=== PATIENT | male | born 1965 | race Caucasian/White ===

== ENCOUNTER 2024-11-02 11:17 | Emergency (ER) | payer MEDICAID ==
[~2024-11-02] VITALS: Ht 172.7 cm; Wt 82.0 kg
[2024-11-02 11:21] VITALS: O2SAT 98
[2024-11-02] MEDS: ACETAMINOPHEN 325MG TABLET PO ONE (12:10)
[2024-11-02] MEDS: KETOROLAC 30MG/ML VIAL IM ONE (12:10)
[2024-11-02 12:39] LABS: BASOPHILS % 0.5 % (0.0-2.0); EOSINOPHILS % 3.4 % (0.0-5.0); HEMATOCRIT. 41.9 % (42.0-52.0); LYMPHOCYTES % 16.1 % (20.0-50.0); MEAN CORPUSCULAR HEMOGLOBIN 29.2 pg (28.0-32.0); MEAN CORPUSCULAR HGB CONC 33.4 g/dL (31.0-37.0); MEAN CORPUSCULAR VOLUME 87.6 fL (80.0-94.0); MEAN PLATELET VOLUME 8.7 fl (7.4-10.4); MONOCYTES % 10.3 % (2.0-8.0); NEUTROPHILS % 69.7 % (40.0-76.0); PLATELET 227 x1000/uL (130-400); RED BLOOD CELL COUNT 4.78 mill/uL (4.7-6.1); RED CELL DISTRIBUTION WIDTH 13.2 % (11.6-14.6); WHITE BLOOD COUNT 10.9 x1000/uL (4.5-11.0)
[2024-11-02 12:41] LABS: PROTHROMBIN TIME 10.5 sec (9.6-11.0)
[2024-11-02 12:48] LABS: CARBON DIOXIDE 27 mEq/L (21-32); CHLORIDE 102 mEq/L (98-107); POTASSIUM 4.2 mEq/L (3.5-5.1); SODIUM 138 mEq/L (136-145)
[2024-11-02 12:53] LABS: CREATININE 0.8 mg/dL (0.6-1.3)
[2024-11-02 12:54] LABS: GLUCOSE 99 mg/dL (70-105); UREA NITROGEN BLOOD 11 mg/dL (9-23)
[2024-11-02] MEDS ORDERED: IBUP-2029 MT (15:07)
[2024-11-02 15:08] VITALS: BP 136/85; PULSE 61; RESP 16; TEMP 37.6; O2SAT 98
== END 2024-11-02 15:18 | disposition home or self-care (01) ==
LOC: ER 13:24
DX: I82.812 Embolism and thrombosis of superficial veins of left lower extremity (principal); E11.9 Type 2 diabetes mellitus without complications; I10 Essential (primary) hypertension; Z79.899 Other long term (current) drug therapy; Z98.890 Other specified postprocedural states
CPT/HCPCS: 99285; 93970; 80048; 85025; 85379; 85610; 36415; 96372; J1885